=== PATIENT | female | born 1945 | race Caucasian/White ===

== ENCOUNTER 2016-06-27 17:25 | Emergency (ER) | payer MEDICARE, OTHER ==
[2016-06-27 22:41] LABS: RED BLOOD COUNT 4.86 M/UL (4.00-5.10)
[2016-06-27 22:57] LABS: BUN/CREATININE RATIO 33 (0-10)
== END 2016-06-27 23:36 | disposition home or self-care (01) ==
LOC: ER1 17:25
PROVIDERS: Physician Assistant
DX: I88.0 Nonspecific mesenteric lymphadenitis (principal); Z90.49 Acquired absence of other specified parts of digestive tract
CPT/HCPCS: 36415; 71010; 80053; 81001; 83605; 83690; 84484; 85025; 87086; 99284

== ENCOUNTER → 2020-10-11 | Outpatient (CLI) | payer MEDICARE, OTHER ==
[~2020-10-11] MED LIST: ANTIVERT 12.512.5 MG PO
== END ==
LOC: KOH-I 11:24
DX: M54.6 Pain in thoracic spine (principal); M47.814 Spondylosis without myelopathy or radiculopathy, thoracic region
CPT/HCPCS: 72070

== ENCOUNTER → 2021-11-15 | Outpatient (CLI) | payer MEDICARE, OTHER | LOC: EMI 12:59 | DX: R42 Dizziness and giddiness (principal) | CPT/HCPCS: 70551 ==